=== PATIENT | male | born 1955 | race Caucasian/White ===

== ENCOUNTER 2022-08-29 16:04 | Inpatient (IN) | payer MEDICARE, OTHER ==
[~2022-08-29] VITALS: Ht 180.3 cm; Wt 89.8 kg
[2022-08-29 17:08] LABS: BASOPHILS % 0.5 % (0.0-2.0); EOSINOPHILS % 2.2 % (0.0-5.0); HEMATOCRIT. 40.5 % (42.0-52.0); HEMOGLOBIN. 13.6 g/dL (14.0-18.0); LYMPHOCYTES % 50.7 % (20.0-50.0); MEAN CORPUSCULAR HEMOGLOBIN 27.6 pg (28.0-32.0); MEAN CORPUSCULAR VOLUME 82.1 fL (80.0-94.0); MEAN PLATELET VOLUME 8.7 fl (7.4-10.4); MONOCYTES % 8.2 % (2.0-8.0); NEUTROPHILS % 38.4 % (40.0-76.0); PLATELET 239 x1000/uL (130-400); RED BLOOD CELL COUNT 4.94 mill/uL (4.7-6.1); RED CELL DISTRIBUTION WIDTH 14.6 % (11.6-14.6)
[2022-08-29 17:15] LABS: CHLORIDE 110 mEq/L (98-107)
[2022-08-29 17:24] LABS: ETHANOL BLOOD < 10 mg/dL
[2022-08-29 17:56] LABS: *AMPHETAMINES SCREEN URINE NEGATIVE (NEGATIVE); *BARBITURATES SCREEN URINE NEGATIVE (NEGATIVE); *BENZODIAZEPINES SCREEN URINE NEGATIVE (NEGATIVE); *COCAINE SCREEN URINE NEGATIVE (NEGATIVE); CANNABINOID URINE SCREEN NEGATIVE (NEGATIVE); METHADONE URINE SCREEN NEGATIVE (NEGATIVE); OPIATES URINE SCREEN NEGATIVE (NEGATIVE); PHENCYCLIDINE URINE SCREEN NEGATIVE (NEGATIVE)
[2022-08-29] MEDS ORDERED: FENTANYL CITRATE/PF 50MCG/ML 2ML VIAL IV ONE (18:45)
[2022-08-29] MEDS ORDERED: LORAZEPAM 2MG/ML CPJ IV ONE (18:45)
[2022-08-29] MEDS ORDERED: ASPIRIN 325MG EC TABLET PO NR (21:00)
[2022-08-29] MEDS ORDERED: ATORVASTATIN CALCIUM 40MG TABLET PO NR (21:00)
[2022-08-29] MEDS ORDERED: FENTANYL CITRATE/PF 50MCG/ML 2ML VIAL IV NR (21:15)
[2022-08-29] MEDS ORDERED: LORAZEPAM 2MG/ML CPJ IV NR (21:15)
[2022-08-30] MEDS ORDERED: CLONIDINE 0.1MG TABLET PO PRN
[2022-08-30] MEDS ORDERED: IPRATROPIUM/ALBUTEROL 0.5-3(2.5)MG/3ML NEB HHN PRN
[2022-08-30] MEDS ORDERED: MAGNESIUM/ALUMINUM HYDROXIDE/SIMETHICONE 30ML UDC PO PRN
[2022-08-30] MEDS ORDERED: GUAIFENESIN 200MG/10ML SUGAR FREE UDC PO PRN
[2022-08-30] MEDS ORDERED: ONDANSETRON HCL 4MG/2ML INJ IV PRN
[2022-08-30] MEDS ORDERED: DOCUSATE SODIUM 100MG CAPSULE PO PRN
[2022-08-30] MEDS ORDERED: ACETAMINOPHEN 325MG TABLET PO PRN
[2022-08-30 01:00] LABS: VITAMIN B12 SERUM 380 pg/mL (211-911)
[2022-08-30] MEDS: ENOXAPARIN 40MG/0.4ML SYR SUBCUT SCH (02:53)
[2022-08-30 04:37] VITALS: BP 103/54
[2022-08-30] MEDS ORDERED: IBUP-2030 MT (04:47)
[2022-08-30] MEDS: ACETAMINOPHEN 325MG TABLET PO PRN ×3 (05:03→18:58)
[2022-08-30 08:00] VITALS: BP 117/59
[2022-08-30] MEDS: ASPIRIN 81MG EC TABLET PO SCH (09:23)
[2022-08-30 10:18] LABS: BASOPHILS % 0.6 % (0.0-2.0); EOSINOPHILS % 1.7 % (0.0-5.0); HEMATOCRIT. 42.7 % (42.0-52.0); HEMOGLOBIN. 14.4 g/dL (14.0-18.0); MEAN CORPUSCULAR HEMOGLOBIN 27.8 pg (28.0-32.0); MEAN CORPUSCULAR VOLUME 82.2 fL (80.0-94.0); NEUTROPHILS % 40.7 % (40.0-76.0); RED BLOOD CELL COUNT 5.19 mill/uL (4.7-6.1); RED CELL DISTRIBUTION WIDTH 14.6 % (11.6-14.6)
[2022-08-30 10:21] LABS: PROTHROMBIN TIME 10.9 sec (9.6-11.0)
[2022-08-30 12:00] VITALS: BP 116/72
[2022-08-30 12:17] LABS: CHLORIDE 108 mEq/L (98-107)
[2022-08-30 12:18] LABS: PHOSPHORUS 2.9 mg/dL (2.5-4.9)
[2022-08-30 12:19] LABS: HDL CHOLESTEROL 39 mg/dL (40-59); LDL CHOLESTEROL 99 mg/dL (5-100); T4 FREE 1.05 ng/dL (0.76-1.46)
[2022-08-30 12:52] LABS: PLATELET 232 x1000/uL (130-400)
[2022-08-30 15:01] LABS: CLARITY URINE CLEAR (CLEAR); COLOR URINE YELLOW (YELLOW); KETONES URINE NEGATIVE (NEGATIVE); LEUKOCYTE ESTERASE URINE NEGATIVE (NEGATIVE); NITRITE URINE NEGATIVE (NEGATIVE); OCCULT BLOOD URINE NEGATIVE (NEGATIVE); PROTEIN URINE NEGATIVE (NEGATIVE); SPECIFIC GRAVITY URINE 1.008 (1.005-1.030); UROBILINOGEN URINE 0.2 E.U./dL (0.2-1.0)
[2022-08-30 16:00] VITALS: BP 101/56
[2022-08-30 20:00] VITALS: BP 106/50
[2022-08-30] MEDS ORDERED: FAMOTIDINE 20MG TABLET PO SCH (21:00)
[2022-08-30] MEDS ORDERED: ATORVASTATIN CALCIUM 40MG TABLET PO SCH (21:00)
[2022-08-31] VITALS: BP 97/61
[2022-08-31] MEDS: ENOXAPARIN 40MG/0.4ML SYR SUBCUT SCH (00:22)
[2022-08-31 04:00] VITALS: BP 97/51
[2022-08-31 08:00] VITALS: BP 99/54
[2022-08-31] MEDS: ASPIRIN 81MG EC TABLET PO SCH (09:01)
[2022-08-31 12:00] VITALS: BP 107/58
[2022-08-31 13:29] VITALS: BP 107/58
== END 2022-08-31 14:30 | disposition home or self-care (01) | DRG 552 ==
LOC: ER 16:04 → MICUSO 22:43 → 7EST 08-30 05:11
PROVIDERS: ADMIT Internal Medicine; ATTEND Internal Medicine
DX: M48.02 Spinal stenosis, cervical region (principal); E78.5 Hyperlipidemia, unspecified; I10 Essential (primary) hypertension; E83.51 Hypocalcemia; F17.210 Nicotine dependence, cigarettes, uncomplicated; R73.9 Hyperglycemia, unspecified; R20.2 Paresthesia of skin; R73.03 Prediabetes; Z28.310 Unvaccinated for COVID-19
CPT/HCPCS: 36415; 70496; 70498; 70551; 71045; 72141; 80053; 80061; 80305; 80320; 81003; 82607; 82746; 83036; 83735; 83880; 84100; 84439; 84443; 84484; 85025; 93005; 93306; 97162; 99291; J1650; G0480